=== PATIENT | female | born 1980 | race Caucasian/White ===

== ENCOUNTER 2017-09-01 06:22 | Day surgery (SDC) | payer OTHER ==
[2017-08-30 10:04] LABS: BASOPHILS # (AUTO) 0.1 K/uL (0.0-0.2); BASOPHILS % (AUTO) 0.7 % (0.0-2.0); EOSINOPHILS # (AUTO) 0.1 K/uL (0.0-0.4); EOSINOPHILS % (AUTO) 1.5 % (0.0-4.0); HEMATOCRIT 38.5 % (36-48); HEMOGLOBIN 12.9 g/dL (12.0-16.0); LYMPHOCYTES # (AUTO) 1.4 K/uL (1.0-5.5); LYMPHOCYTES % (AUTO) 17.6 % (20.5-51.5); MEAN CORPUSCULAR HEMOGLOBIN 28 pg (27-31); MEAN CORPUSCULAR HGB CONC 33 % (32-36); MEAN CORPUSCULAR VOLUME 85 fL (79.0-98.0); MONOCYTES # (AUTO) 0.5 K/uL (0.0-1.0); MONOCYTES % (AUTO) 6.6 % (1.7-9.3); NEUTROPHILS # (AUTO) 5.6 K/uL (1.8-7.7); NEUTROPHILS % (AUTO) 73.6 % (40.0-70.0); PLATELET COUNT (AUTO) 328 K/uL (130-430); RED BLOOD CELL COUNT(AUTO) 4.52 MIL/uL (4.2-6.2); RED CELL DISTRIBUTION WIDTH 12.6 % (9.0-15.0); WHITE BLOOD COUNT (AUTO) 7.7 K/uL (4.8-10.8)
[2017-08-30 10:17] LABS: HCG,QUAL RESULT NEGATIVE (NEGATIVE)
[2017-08-30 10:27] LABS: BILIRUBIN,URINE NEGATIVE (NEGATIVE); CLARITY/URINE HAZY (CLEAR); COLOR,URINE YELLOW (YELLOW); GLUCOSE,URINE NEGATIVE (NEGATIVE); KETONES,URINE NEGATIVE (NEGATIVE); LEUKOCYTE ESTERASE ,URINE 2+ (NEGATIVE); NITRITE, URINE NEGATIVE (NEGATIVE); PH,URINE 5.5 (5.0-8.0); PROTEIN URINE NEGATIVE (NEGATIVE); UROBILINOGEN,URINE 0.2 (0.2-1.0)
[2017-08-30 10:30] LABS: BLOOD, URINE TRACE (NEGATIVE)
[2017-08-30 10:50] LABS: CALCIUM 9.1 mg/dL (8.4-11.0); CREATININE 0.67 mg/dL (0.55-1.30); POTASSIUM 4.1 mmol/L (3.5-5.1)
[2017-08-30 10:58] LABS: BACTERIA,URINE MANY /HPF (None Seen)
[2017-08-30 10:59] LABS: MUCUS,URINE 1+ /LPF (None Seen)
[~2017-09-01] VITALS: Ht 160 cm; Wt 92.5 kg
[2017-09-01] MEDS ORDERED: fentaNYL CITRATE/PF 100 MCG/2 ML AMP IVP ONE (08:33)
[2017-09-01] MEDS ORDERED: SEVOFLURANE 15 MIN GAS INH ONE (08:33)
[2017-09-01] MEDS ORDERED: KETOROLAC TROMETHAMINE 30 MG VIAL IVP ONE (08:33)
[2017-09-01] MEDS ORDERED: MIDAZOLAM HCL 5 MG/5 ML VIAL IVP ONE (08:33)
[2017-09-01] MEDS ORDERED: NS IRRIG SOLN 1000 ML IR ONE (08:33)
[2017-09-01] MEDS ORDERED: METOCLOPRAMIDE HCL 10 MG/2 ML VIAL IVP ONE (08:33)
[2017-09-01] MEDS ORDERED: PROPOFOL 200MG/ 20ML VIAL (DIPRIVAN) IV ONE (08:33)
[2017-09-01] MEDS ORDERED: DEXAMETHASONE SOD PHOSPHATE 4 MG/ML VIAL IVP ONE (08:33)
[2017-09-01] MEDS ORDERED: fentaNYL CITRATE/PF 100 MCG/2 ML AMP IVP PRN (09:15)
[2017-09-01] MEDS ORDERED: ONDANSETRON HCL 4 MG/2 ML VIAL IVP PRN ×3 (09:15→09:30)
[2017-09-01] MEDS ORDERED: NALBUPHINE HCL 10 MG/ML AMP IVP PRN (09:15)
[2017-09-01] MEDS ORDERED: DIPHENHYDRAMINE INJ 50 MG/ML VIAL IVP PRN (09:15)
[2017-09-01] MEDS ORDERED: LR 1,000 ML IV ONE (09:15)
[2017-09-01] MEDS ORDERED: ePHEDrine sulfate 50 MG/ML VIAL IVP PRN (09:15)
[2017-09-01] MEDS ORDERED: NALOXONE HCL 0.4 MG/ML AMP (NARCAN) IVP PRN (09:15)
[2017-09-01] MEDS ORDERED: HYDROmorphone 2 MG TAB PO PRN (09:30)
[2017-09-01] MEDS ORDERED: OXYCODONE/ACETAMINOPHEN 5-325 TABLET PO PRN (09:30)
[2017-09-01] MEDS ORDERED: PROMETHAZINE HCL 25 MG/ML AMP IM PRN (09:30)
[2017-09-01 11:30] VITALS: BP_SYST 113
== END 2017-09-01 11:00 | disposition home or self-care (01) ==
LOC: SDS 06:22 → SMU 06:23 → SDS 11:00
PROVIDERS: ATTEND Obstetrics & Gynecology
DX: Z18.89 Other specified retained foreign body fragments (principal)
CPT/HCPCS: 36415; 58562; 80048; 81000; 84703; 85025; 86886; 86900; 86901; J1100; J1885; J2250; J2704; J2765; J3010; J7120